=== PATIENT | male | born 1990 | race Caucasian/White ===

== ENCOUNTER 2019-08-20 18:32 | Emergency (ER) | payer MEDICAID ==
[~2019-08-20] VITALS: Ht 170.2 cm; Wt 90.0 kg
[2019-08-20 18:54] VITALS: BP 146/94
--- NOTE | 2019-08-20 19:26 | NUR ---
C/O COUGH CONGESTION RHINORRHEA SORE THROAT X 2 DAYS DENIES N/V/D , DENIES FEVER AT THIS TIME---FULL CLEAR SPEECH WITH NO ACCESSORY MUSCLE USE NOTED
--- NOTE | 2019-08-20 19:38 | NUR ---
influenza swab collected --lab notified
[2019-08-20 21:45] VITALS: BP 146/94
--- NOTE | 2019-08-20 21:45 | NUR ---
Patient discharged with v/s stable. Written and verbal after care instructions given and explained. Patient alert, oriented and verbalized understanding of instructions. Ambulatory with steady gait. All questions addressed prior to discharge. ID band removed. Patient advised to follow up with PMD. Rx of Ibuprofen and Promethazine given. Patient educated on indication of medication including possible reaction and side effects. Opportunity to ask questions provided and answered.
== END 2019-08-20 21:45 | disposition home or self-care (01) ==
LOC: MED 18:32
DX: B34.9 Viral infection, unspecified (principal)
CPT/HCPCS: 87804; 99283